=== PATIENT | female | born 1990 | race Caucasian/White ===

== ENCOUNTER 2024-11-20 18:41 | Emergency (ER) | payer OTHER ==
[~2024-11-20] VITALS: Ht 160 cm; Wt 74.9 kg
[2024-11-20] MEDS ORDERED: ECOT81TA5 PO (18:59)
[2024-11-20] MEDS ORDERED: ADVA1AER10 INH (18:59)
[2024-11-20] MEDS ORDERED: MONT-5 PO (18:59)
[2024-11-20] MEDS ORDERED: flovent (18:59)
[2024-11-20] MEDS ORDERED: XOLA150S SC (18:59)
[2024-11-20] MEDS ORDERED: LEVOTAB10 PO (18:59)
[2024-11-20] MEDS ORDERED: VENTAER INH (18:59)
[2024-11-20 21:03] VITALS: BP 123/78; TEMP 98.1; O2SAT 98
== END 2024-11-20 21:10 | disposition home or self-care (01) ==
LOC: M ED 18:41
DX: Z48.01 Encounter for change or removal of surgical wound dressing (principal); Z98.890 Other specified postprocedural states; Z88.8 Allergy status to other drugs, medicaments and biological substances; Z91.040 Latex allergy status; Z79.82 Long term (current) use of aspirin; Z79.52 Long term (current) use of systemic steroids; Z79.899 Other long term (current) drug therapy